=== PATIENT | female | born 1960 | race Caucasian/White ===

== ENCOUNTER → 2016-12-05 | Outpatient (CLI) | payer MEDICARE, MEDICAID ==
[2016-12-05 11:36] LABS: ABSOLUTE BASOPHILS # (AUTO) 0.1 10^3/uL (0.0-0.2); ABSOLUTE EOSINOPHILS # (AUTO) 0.2 10^3/uL (0.0-0.6); ABSOLUTE LYMPHOCYTES (AUTO) 3.4 10^3/uL (0.5-4.7); ABSOLUTE MONOCYTES (AUTO) 0.7 10^3/uL (0.1-1.4); ABSOLUTE NEUT (AUTO) 7.2 10^3/uL (1.7-8.2); BASOPHILS % (AUTO) 1.2 % (0-2); EOSINOPHILS % (AUTO) 1.4 % (0-6); HEMATOCRIT 42.3 % (36.0-47.0); HEMOGLOBIN 14.2 g/dL (12.0-15.5); HGB HCT DIFFERENCE 0.3; LYMPHOCYTES % (AUTO) 29.1 % (13-45); MEAN CORPUSCULAR HGB CONC 33.6 g/dL (32.0-36.0); MEAN CORPUSCULAR VOLUME 92 fl (80-97); MONOCYTES % (AUTO) 6.1 % (3-13); RED BLOOD COUNT 4.59 10^6/uL (3.72-5.28); RED CELL DISTRIBUTION WIDTH 12.8 % (11.5-14.0); SEGMENTED NEUTROPHILS % (AUTO) 62.2 % (42-78); WHITE BLOOD COUNT 11.6 10^3/uL (4.0-10.5)
[2016-12-05 11:42] LABS: APPEARANCE,URINE CLEAR; BILIRUBIN,URINE NEGATIVE (NEGATIVE); GLUCOSE, URINE NEGATIVE (NEGATIVE); KETONES,URINE NEGATIVE (NEGATIVE); LEUKOCYTE ESTERASE,URINE NEGATIVE (NEGATIVE); NITRITE,URINE NEGATIVE (NEGATIVE); PROTEIN,URINE NEGATIVE (NEGATIVE); URINE SPECIFIC GRAVITY 1.003; UROBILINOGEN,URINE NEGATIVE mg/dL (<2.0)
[2016-12-05 11:53] LABS: ANION GAP 12 (5-19); BLOOD UREA NITROGEN 10 mg/dL (7-20); CALCIUM 9.8 mg/dL (8.4-10.2); CARBON DIOXIDE 24 mmol/L (22-30); CHLORIDE 105 mmol/L (98-107); CREATININE RESULT 0.54 mg/dL (0.52-1.25); GLUCOSE 86 mg/dL (75-110); SODIUM 141.1 mmol/L (137-145)
--- NOTE | 2016-12-05 13:12 | EKG REPORT ---
SEVERITY:- NORMAL ECG - SINUS RHYTHM : Confirmed by: Darnell Torrez MD 05-Dec-2016 13:11:59
== END ==
LOC: OD 10:17
PROVIDERS: ATTEND Orthopaedic Surgery
DX: Z01.810 Encounter for preprocedural cardiovascular examination (principal); Z01.811 Encounter for preprocedural respiratory examination; Z01.812 Encounter for preprocedural laboratory examination; Z01.818 Encounter for other preprocedural examination
CPT/HCPCS: 36415; 71020; 80048; 81001; 85025; 93005; 93010

== ENCOUNTER 2016-12-25 06:46 | Inpatient (IN) | payer MEDICARE, MEDICAID ==
[~2016-12-25 06:46] MED LIST: BUPIVACAINE INJ/PF LIPOSOME/PF 266 MG/20 ML SDV IJ PRN; CLINDAMYCIN 600 MG/D5W RTU 600 MG/50 ML RTUPB IV PRN; IBUPROFEN 800 MG/NS 250 ML IV PRN; LACTATED RINGERS 1000 ML IV PRN; LANSOPRAZOLE 15 MG TAB.RAP.DR PO PRN; LIDOCAINE 0.5% INJ-PF (5 MG/ML) 50 ML SDV SUBCUT PRN; OXYCODONE HCL SR 10 MG TABLET PO PRN; SCOPOLAMINE HYDROBROMIDE 1.5 MG PATCH.TD72 TOP PRN; VANCOMYCIN HCL 1,000 MG in DEXTROSE 5%-WATER 250 ML IV PRN
[2016-12-25] MEDS ORDERED: MIDAZOLAM 2 MG/2 ML INJ ONE (06:57)
[2016-12-25] MEDS ORDERED: FENTANYL CITRATE INJ/PF 100 MCG/2 ML AMPUL ONE (06:57)
[2016-12-25] MEDS ORDERED: EPHEDRINE SULFATE INJ 50 MG/1 ML AMPULE ONE (06:57)
[2016-12-25] MEDS ORDERED: PROPOFOL INJ 200 MG/20 ML VIAL IV ONE (06:57)
[2016-12-25] MEDS ORDERED: DEXMEDETOMIDINE INJ 80 MCG/20 ML VIAL IV ONE (06:58)
[2016-12-25] MEDS ORDERED: TRANEXAMIC ACID INJ/PF 1,000 MG/10 ML SDV IV ONE ×2 (06:58→12:00)
[2016-12-25] MEDS ORDERED: THROMBIN (BOVINE) 5000 UNIT EPITAXIS KIT ONE (07:22)
[2016-12-25] MEDS ORDERED: BUPIVACAINE INJ/PF LIPOSOME/PF 266 MG/20 ML SDV ONE (07:22)
[2016-12-25] MEDS ORDERED: THROMBIN (BOVINE) TOPICAL 20000 UNIT VIAL ONE (07:25)
[2016-12-25] MEDS ORDERED: HYDROMORPHONE HCL INJ/PF 2 MG/ML AMPULE ONE (08:22)
[2016-12-25] MEDS ORDERED: MORPHINE SULFATE 10 MG/ML INJ ONE (08:22)
[2016-12-25] MEDS ORDERED: MEPERIDINE HCL/PF INJ 25 MG/1 ML DISP.SYRIN IV PRN (08:24)
[2016-12-25] MEDS ORDERED: PROMETHAZINE HCL INJ 25 MG/1 ML VIAL IV PRN ×2 (08:24)
[2016-12-25] MEDS ORDERED: DIPHENHYDRAMINE HCL 50 MG/ML VIAL IV PRN ×2 (08:24→09:51)
[2016-12-25] MEDS ORDERED: FENTANYL CITRATE INJ/PF 100 MCG/2 ML AMPUL IV PRN ×3 (08:24)
[2016-12-25] MEDS ORDERED: MORPHINE SULFATE 10 MG/ML INJ IV PRN ×3 (08:24→09:51)
--- NOTE | 2016-12-25 09:50 | Operative Report ---
Operative Report DATE OF SURGERY: 12/25/16 PREOPERATIVE DIAGNOSIS: Left knee arthritis OPERATION: Left knee arthroplasty SURGEON: KARLIE STANFORD ANESTHESIA: Spinal TISSUE REMOVED OR ALTERED: Bone to pathology ESTIMATED BLOOD LOSS: 100 PROCEDURE: Implants used: Femur: Striker triathlon #4 CR femur Tibia:, 3 tibia Tibial liner:, 9 mm CS insert Patella: 29 mm oval patella Procedure with the patient supine on the operating table the, left the limb is prepped and draped in a sterile fashion. The limb was elevated for exsanguination and the tourniquet inflated to 280 torr. A standard midline median parapatellar approach the knee is taken. Access is gained to the femoral canal through the intercondylar notch. Intramedullary alignment instrumentation used to resect 10 mm of distal femur in 5 of valgus. Sizing guide indicated a size. 4 femur. Appropriate cutting jig is then used to fashion anterior posterior and chamfer cuts. A trial reduction femurs performed and this is judged to be adequate. Attention was next turned to the tibia. Using an extra medullary alignment system 9 millimeters was resected off the lateral tibial plateau. This is sized to a size 3 tibia. A trial reduction was now performed with a. 4 femur and a 3 tibia using a 9 millimeters spacer. It is full extension and central patellofemoral tracking. The articular surface the patella was next resected using an oscillating saw. All trial implants were removed. Polymethylmethacrylate is mixed and used to cement the above implants in place. On adequate curing the cement excess cement was removed the tourniquet was deflated hemostasis obtained the wound is then closed in layers using interrupted Vicryl followed by brittaney. A sterile compressive dressing was applied and the patient returned to recovery room in satisfactory condition.
[2016-12-25] MEDS ORDERED: MORPHINE SULFATE 10 MG/ML INJ IM PRN (09:51)
[2016-12-25] MEDS ORDERED: RINGERS SOLUTION,LACTATED 1,000 ML IV PRN (09:51)
[2016-12-25] MEDS ORDERED: ONDANSETRON 4 MG TAB.RAPDIS PO PRN (09:51)
[2016-12-25] MEDS ORDERED: ACETAMINOPHEN 325 MG TABLET PO PRN (09:51)
[2016-12-25] MEDS ORDERED: MAG HYDROX/AL HYDROX/SIMETH SUSP 30 ML UDCUP PO PRN (09:51)
[2016-12-25] MEDS ORDERED: LIDOCAINE 15 GM TP SCH (10:00)
[2016-12-25] MEDS ORDERED: ONABOTULINUMTOXINA 200 UNIT IJ SCH (10:00)
[2016-12-25] MEDS ORDERED: LIDOCAINE 2% INJ-PF (20 MG/ML) 10 ML AMPUL ONE (12:43)
[2016-12-25] MEDS ORDERED: DEXAMETHASONE SOD PHOSPHATE INJ 4 MG/1 ML VIAL ONE (12:43)
[2016-12-25] MEDS ORDERED: METOCLOPRAMIDE HCL INJ/PF 10 MG/2 ML SDV ONE (12:43)
[2016-12-25] MEDS ORDERED: SUCCINYLCHOLINE CHLORIDE INJ 200 MG/10 ML VIAL ONE (12:43)
[2016-12-25] MEDS ORDERED: KETOROLAC TROMETHAMINE 60 MG/2 ML SDV ONE (12:43)
[2016-12-25] MEDS ORDERED: ONDANSETRON HCL INJ/PF 4 MG/2 ML SDV ONE (12:43)
[2016-12-25] MEDS: MORPHINE SULFATE 10 MG/ML INJ IV PRN (12:58)
[2016-12-25] MEDS: IBUPROFEN 800 MG in NORMAL SALINE 250 ML IV SCH (17:32)
[2016-12-25] MEDS: ONDANSETRON HCL INJ/PF 4 MG/2 ML SDV IV PRN (17:32)
[2016-12-25] MEDS: OXYCODONE HCL SR 10 MG TABLET PO SCH (17:33)
[2016-12-25] MEDS: SENNOSIDES/DOCUSATE 8.6-50 MG 1 EACH TABLET PO SCH (17:33)
[2016-12-25] MEDS: ZIPRASIDONE HCL 40 MG CAPSULE PO SCH (21:27)
[2016-12-25] MEDS: RIVAROXABAN 10 MG TABLET PO SCH (21:27)
[2016-12-25] MEDS ORDERED: ZOLPIDEM TARTRATE 5 MG TABLET PO PRN (22:00)
[2016-12-25] MEDS ORDERED: VANCOMYCIN HCL 1,000 MG in DEXTROSE 5%-WATER 250 ML IV ONE (22:00)
[2016-12-25] MEDS ORDERED: (PENDING PHARMACY ID) (Ziprasidone Hcl [Geodon] 80 MG) PO SCH (22:00)
[2016-12-25] MEDS ORDERED: CLOMIPRAMINE HCL PO SCH (22:00)
[2016-12-25] MEDS: OXYCODONE HCL IR 5 MG TABLET PO PRN (23:25)
[2016-12-26] MEDS: MORPHINE SULFATE 10 MG/ML INJ IV PRN (01:06)
[2016-12-26] MEDS: IBUPROFEN 800 MG in NORMAL SALINE 250 ML IV SCH ×3 (02:13→17:00)
[2016-12-26 04:55] LABS: HEMATOCRIT 28.3 % (36.0-47.0); HGB HCT DIFFERENCE 1.7; MEAN CORPUSCULAR HEMOGLOBIN 31.8 pg (27.0-33.4); MEAN CORPUSCULAR HGB CONC 35.5 g/dL (32.0-36.0); MEAN CORPUSCULAR VOLUME 89 fl (80-97); RED BLOOD COUNT 3.16 10^6/uL (3.72-5.28); RED CELL DISTRIBUTION WIDTH 12.4 % (11.5-14.0)
[2016-12-26 05:17] LABS: ANION GAP 10 (5-19); BLOOD UREA NITROGEN 7 mg/dL (7-20); CALCIUM 9.1 mg/dL (8.4-10.2); CARBON DIOXIDE 25 mmol/L (22-30); CHLORIDE 104 mmol/L (98-107); CREATININE RESULT 0.42 mg/dL (0.52-1.25); GLUCOSE 128 mg/dL (75-110); POTASSIUM 4.5 mmol/L (3.6-5.0); SODIUM 139.2 mmol/L (137-145)
[2016-12-26] MEDS: LEVOTHYROXINE SODIUM 0.1 MG TABLET PO SCH (06:04)
[2016-12-26] MEDS: LANSOPRAZOLE 30 MG TAB.RAP.DR PO SCH (06:04)
[2016-12-26] MEDS: OXYCODONE HCL SR 10 MG TABLET PO SCH ×2 (06:04→17:00)
--- NOTE | 2016-12-26 06:43 | PDOC PROGRESS REPORT ---
Subjective Progress Note for:: 12/26/16 Subjective:: Patient with significant pain last night but doing better this morning. She attributes this to the the ibuprofen Physical Exam Vital Signs: Temp Pulse Resp BP Pulse Ox 36.9 C 74 17 94/60 L 98 12/26/16 03:49 12/26/16 03:49 12/26/16 03:49 12/26/16 03:49 12/26/16 03:49 Intake & Output 12/24/16 12/25/16 12/26/16 06:59 06:59 06:59 Intake Total 0 4530 Output Total 4200 Balance 0 330 Weight 62.4 kg General appearance: PRESENT: no acute distress Head exam: PRESENT: normocephalic Eye exam: PRESENT: EOMI Respiratory exam: PRESENT: unlabored Cardiovascular exam: PRESENT: RRR Pulses: PRESENT: +1 pedal pulses bilateral Vascular exam: PRESENT: normal capillary refill GI/Abdominal exam: PRESENT: soft Rectal exam: PRESENT: deferred Extremities exam: PRESENT: other - Left lower extremity aime dressing is clean dry and intact. Distal neurovascular examinations intact. Neurological exam: PRESENT: alert, awake, oriented to person, oriented to place , oriented to time, oriented to situation, CN II-XII grossly intact. ABSENT: motor sensory deficit Psychiatric exam: PRESENT: anxious Skin exam: PRESENT: dry, intact, warm. ABSENT: cyanosis, rash Results Laboratory Results: 12/26/16 04:14 12/26/16 04:14 12/26/16 12/26/16 04:14 04:14 WBC 15.0 H RBC 3.16 L Hgb 10.0 L Hct 28.3 L MCV 89 MCH 31.8 MCHC 35.5 RDW 12.4 Plt Count 251 Sodium 139.2 Potassium 4.5 Chloride 104 Carbon Dioxide 25 Anion Gap 10 BUN 7 Creatinine 0.42 L Est GFR ( Amer) > 60 Est GFR (Non-Af Amer) > 60 Glucose 128 H Calcium 9.1 Impressions: Knee X-Ray 12/25/16 09:53 IMPRESSION: SATISFACTORY POSTOPERATIVE LEFT KNEE. Status: Imported from PACS Assessment & Plan - Diagnosis (1) Arthritis of left knee Is this a current diagnosis for this admission?: YesPlan: 56-year-old white female postop day 1 from left knee arthroplasty. There were significant pain issues that seem to be resolving. Patient ambulated 200 feet with physical therapy. Hematocrits greater than 28%. - Time Time Spent with patient: 15-24 minutes Anticipated discharge: Home with Homehealth Within: within 24 hours
[2016-12-26] MEDS ORDERED: ATOMOXETINE HCL 80 MG PO SCH (08:00)
[2016-12-26] MEDS ORDERED: LACTOBACILLUS COMBINATION NO 4 PO SCH (08:00)
[2016-12-26] MEDS ORDERED: (PENDING PHARMACY ID) (Vortioxetine Hydrobromide [Trintellix] 20 MG) PO SCH (08:00)
[2016-12-26] MEDS: SENNOSIDES/DOCUSATE 8.6-50 MG 1 EACH TABLET PO SCH ×2 (09:01→17:00)
[2016-12-26] MEDS: PRENATAL VITAMIN W-O CA NO5/FE FUMARATE/FA CAPSULE PO SCH (09:01)
[2016-12-26] MEDS: DIAZEPAM 5 MG TABLET PO SCH (09:01)
[2016-12-26] MEDS: LACTOBACILLUS ACIDOPHILUS 250 MG TAB PO SCH (09:02)
[2016-12-26] MEDS: FLUTICASONE NASAL SPRAY 50 MCG/SPRY 120 SPRAY/16 GM NASL SCH (09:04)
[2016-12-26] MEDS: OXYCODONE HCL IR 5 MG TABLET PO PRN ×2 (13:13→22:32)
[2016-12-26] MEDS: ZIPRASIDONE HCL 40 MG CAPSULE PO SCH (21:14)
[2016-12-26] MEDS: RIVAROXABAN 10 MG TABLET PO SCH (21:14)
[2016-12-27] MEDS: ONDANSETRON HCL INJ/PF 4 MG/2 ML SDV IV PRN (00:26)
[2016-12-27] MEDS: IBUPROFEN 800 MG in NORMAL SALINE 250 ML IV SCH ×2 (00:57→09:52)
[2016-12-27 05:08] LABS: HEMATOCRIT 26.9 % (36.0-47.0); HEMOGLOBIN 9.5 g/dL (12.0-15.5); HGB HCT DIFFERENCE 1.6; MEAN CORPUSCULAR HEMOGLOBIN 31.5 pg (27.0-33.4); MEAN CORPUSCULAR HGB CONC 35.1 g/dL (32.0-36.0); MEAN CORPUSCULAR VOLUME 90 fl (80-97); RED CELL DISTRIBUTION WIDTH 12.7 % (11.5-14.0); WHITE BLOOD COUNT 13.5 10^3/uL (4.0-10.5)
[2016-12-27] MEDS: LEVOTHYROXINE SODIUM 0.1 MG TABLET PO SCH (05:19)
[2016-12-27] MEDS: LANSOPRAZOLE 30 MG TAB.RAP.DR PO SCH (05:19)
[2016-12-27] MEDS: OXYCODONE HCL SR 10 MG TABLET PO SCH (05:19)
--- NOTE | 2016-12-27 07:25 | PDOC DISCHARGE SUMMARY ---
General - Admit/Disc Date/PCP Admission Date/Primary Care Provider: 12/25/16 06:46 SARBJIT ACEVEDO MD Discharge Date: 12/27/16 - Discharge Diagnosis (1) Arthritis of left knee Is this a current diagnosis for this admission?: YesSummary: Patient's a 56-year-old white female who presents with bilateral knee osteoarthritis and associated pain and functional disability. - Additional Information Resuscitation Status: Full Code Discharge Diet: As Tolerated, Regular Discharge Activity: Activity As Tolerated, Balance Activity w/Rest, No Driving Home Medications: Atomoxetine HCl [Strattera] 80 mg PO BID 12/25/16 Clomipramine HCl [Anafranil 25 mg Capsule] 100 mg PO QHS 12/25/16 Levothyroxine Sodium [Synthroid] 100 mcg PO QAM 12/25/16 Trazodone HCl [Desyrel] 200 mg PO QHS 12/25/16 Vortioxetine Hydrobromide [Trintellix] 20 mg PO QAM 12/25/16 Ziprasidone HCl [Geodon] 80 mg PO BID 12/25/16 Atomoxetine HCl [Strattera] 80 mg PO QAM 12/27/16 Clomipramine HCl [Clomipramine HCl] 100 mg PO QHS 12/27/16 Diazepam [Valium 5 mg Tablet] 5 mg PO DAILY #0 tablet 12/27/16 Levothyroxine Sodium [Synthroid 0.1 mg Tablet] 0.1 mg PO Q6AM #0 tablet Lidocaine [Lidocaine] 15 gm TP TID 12/27/16 Oxycodone HCl [Oxy-Ir 5 mg Tablet] 5 mg PO Q6HP PRN #0 tablet 12/27/16 Rivaroxaban [Xarelto 10 mg Tablet] 10 mg PO QHS #0 tablet 12/27/16 Vortioxetine Hydrobromide [Trintellix] 20 mg PO QAM 12/27/16 Ziprasidone HCl [Geodon 40 mg Capsule] 80 mg PO QHS #0 capsule 12/27/16 History of Present Illness History of Present Illness: LOREE JAQUEZ is a 56 year old female Hospital Course Hospital Course: Patient is admitted through the operating room for elective left knee arthroplasty. Her sutures uncomplicated. She was returned to floor in satisfactory condition. She's seen by physical therapy for weightbearing as tolerated ambulation and range of motion. She makes excellent progress in this regard. Pain control is mildly problematic. She makes sufficient progress that she substrate for discharge with home health intermediate health physical therapy we will walker and bedside commode. Physical Exam Vital Signs: Temp Pulse Resp BP Pulse Ox 36.9 C 92 20 119/46 L 97 12/26/16 19:56 12/26/16 23:12 12/26/16 23:12 12/26/16 23:12 12/26/16 23:12 Intake & Output 12/26/16 12/27/16 12/28/16 06:59 06:59 06:59 Intake Total 4530 2230 Output Total 4200 2850 Balance 330 -620 Weight 62.4 kg 59.1 kg General appearance: PRESENT: no acute distress Head exam: PRESENT: normocephalic Eye exam: PRESENT: EOMI Respiratory exam: PRESENT: unlabored Cardiovascular exam: PRESENT: RRR Pulses: PRESENT: +1 pedal pulses bilateral Vascular exam: PRESENT: normal capillary refill GI/Abdominal exam: PRESENT: soft Rectal exam: PRESENT: deferred Extremities exam: PRESENT: other - Left knee aime dressing clean dry and intact. There is minimal pedal edema. Brisk capillary refill. Distal neurovascular examinations intact. Neurological exam: PRESENT: alert, awake, oriented to person, oriented to place , oriented to time, oriented to situation. ABSENT: motor sensory deficit Psychiatric exam: PRESENT: appropriate affect, normal mood. ABSENT: homicidal ideation, suicidal ideation Skin exam: PRESENT: dry, intact, warm. ABSENT: cyanosis, rash Results Laboratory Results: 12/27/16 04:06 12/26/16 04:14 12/27/16 04:06 WBC 13.5 H RBC 3.00 L Hgb 9.5 L Hct 26.9 L MCV 90 MCH 31.5 MCHC 35.1 RDW 12.7 Plt Count 244 Impressions: Knee X-Ray 12/25/16 09:53 IMPRESSION: SATISFACTORY POSTOPERATIVE LEFT KNEE. Status: Imported from PACS Plan Discharge Plan: Patient to be discharged home with home health nursing, home health physical therapy, we'll Walker, bedside commode. Visiting nurse service to change the aime dressing on postop day #7. Patient will follow up with Dr. Kate in the [facility] for surgery in 2 weeks for staple removal.
[2016-12-27] MEDS: OXYCODONE HCL IR 5 MG TABLET PO PRN (09:51)
[2016-12-27] MEDS: SENNOSIDES/DOCUSATE 8.6-50 MG 1 EACH TABLET PO SCH (09:52)
[2016-12-27] MEDS: LACTOBACILLUS ACIDOPHILUS 250 MG TAB PO SCH (09:52)
[2016-12-27] MEDS: DIAZEPAM 5 MG TABLET PO SCH (09:52)
[2016-12-27] MEDS: PRENATAL VITAMIN W-O CA NO5/FE FUMARATE/FA CAPSULE PO SCH (09:52)
[2016-12-27] MEDS: FLUTICASONE NASAL SPRAY 50 MCG/SPRY 120 SPRAY/16 GM NASL SCH (09:53)
[2016-12-27 13:43] VITALS: BP 110/74
== END 2016-12-27 14:45 | disposition home health service (06) | DRG 470 ==
LOC: INOR 06:46 → 4S 12:08
PROVIDERS: ADMIT Orthopaedic Surgery; ATTEND Orthopaedic Surgery
PROC: 0SRD0J9 Replacement of Left Knee Joint with Synthetic Substitute, Cemented, Open Approach (ICD-10-PCS; principal; 2016-12-25 08:45)
DX: M17.12 Unilateral primary osteoarthritis, left knee (principal); M19.90 Unspecified osteoarthritis, unspecified site; J45.909 Unspecified asthma, uncomplicated; K21.9 Gastro-esophageal reflux disease without esophagitis; K44.9 Diaphragmatic hernia without obstruction or gangrene; F41.8 Other specified anxiety disorders; E89.0 Postprocedural hypothyroidism
CPT/HCPCS: 01402; 36415; 80048; 85027; 88305; 88311; 94799; C9290; G8978-GP; G8979-GP; G8987-GO; G8988-GO; J0330; J1100; J1170; J1741; J1885; J2250; J2270; J2405; J2704; J2765; J3010; J3370; J3490; J7050; J7060

== ENCOUNTER 2016-12-30 13:31 | Emergency (ER) | payer MEDICARE, MEDICAID ==
[2016-12-30 13:48] VITALS: BP 105/68
--- NOTE | 2016-12-30 14:06 | ER Document Report ---
ED Medical Screen (RME) - General Chief Complaint: Urinary Problem Stated Complaint: PAIN WITH URINATION Notes: Patient is having painful urination with burning, especially as she finishes urinating for the past few days. Has not had any fever or flank pain. Patient had a left total knee replacement Sunday, and she did have a Gaming catheter in during the procedure. PMH: On Xarelto. Hypothyroid. Bipolar disorder and anxiety. OCD. TRAVEL OUTSIDE OF THE [place] IN LAST 30 DAYS: No - Related Data Allergies/Adverse Reactions: amoxicillin [From Augmentin] Allergy (Verified 12/12/16 10:39) Facial swelling clavulanic acid [From Augmentin] Allergy (Verified 12/12/16 10:39) Facial swelling paliperidone [From Invega] Allergy (Verified 12/12/16 10:27) Anaphylaxis risperidone [From Risperdal] Allergy (Verified 12/12/16 10:27) Anaphylaxis Past Medical History - Past Medical History Cardiac Medical History: Denies: Hx Atrial Fibrillation, Hx Congestive Heart Failure, Hx Coronary Artery Disease, Hx Heart Attack, Hx Hypercholesterolemia, Hx Hypertension, Hx Peripheral Vascular Disease, Hx Pulmonary Embolism, Hx Heart Murmur Pulmonary Medical History: Reports: Hx Asthma, Hx Bronchitis, Hx Pneumonia Denies: Hx COPD, Hx Respiratory Failure, Hx Sleep Apnea, Hx Tuberculosis Neurological Medical History: Reports: Hx Migraine. Denies: Hx Cerebrovascular Accident, Hx Seizures Endocrine Medical History: Reports: Hx Hyperthyroidism, Hx Hypothyroidism - Thyroidectomy, takes Synthroid. Denies: Hx Graves' Disease Renal/ Medical History: Reports: Hx Ovarian Cysts - left. Denies: Hx Peritoneal Dialysis, Hx Pelvic Inflammatory Disease Malignancy Medical History: Reports: Hx Breast Cancer, Hx Cervical Cancer. Denies: Hx Lung Cancer, Hx Ovarian Cancer GI Medical History: Reports: Hx Gastroesophageal Reflux Disease, Hx Hiatal Hernia, Hx Ulcer. Denies: Hx Crohn's Disease, Hx Irritable Bowel, Hx Liver Failure Musculoskeltal Medical History: Reports Hx Arthritis, Denies Hx Fibromyalgia, Denies Hx Multiple Sclerosis, Denies Hx Muscular Dystrophy Psychiatric Medical History: Reports: Hx Bipolar Disorder, Hx Depression Denies: Hx Dementia, Hx Post Traumatic Stress Disorder, Hx Schizophrenia Traumatic Medical History: Denies: Hx Fractures Past Surgical History: Reports: Hx Breast Surgery, Hx Gynecologic Surgery - 1 ovary out, Hx Hysterectomy, Hx Mastectomy - bilateral, Hx Orthopedic Surgery - ortoscopic left knee, Hx Tonsillectomy. Denies: Hx Appendectomy, Hx Bowel Surgery, Hx Section, Hx Cholecystectomy, Hx Colostomy, Hx Coronary Artery Bypass Graft, Hx Gastric Bypass Surgery, Hx Herniorrhaphy, Hx Pacemaker, Hx Tubal Ligation - Immunizations Immunizations up to date: Yes Hx Diphtheria, Pertussis, Tetanus Vaccination: No Physical Exam - Vital signs Vitals: Temp Pulse Resp BP Pulse Ox 98.2 F 103 H 16 105/68 98 12/30/16 13:45 12/30/16 13:45 12/30/16 13:45 12/30/16 13:45 12/30/16 13:45 Course - Vital Signs Vital signs: Temp Pulse Resp BP Pulse Ox 98.2 F 103 H 16 105/68 98 12/30/16 13:45 12/30/16 13:45 12/30/16 13:45 12/30/16 13:45 12/30/16 13:45
[2016-12-30 14:53] LABS: APPEARANCE,URINE CLOUDY; BILIRUBIN,URINE NEGATIVE (NEGATIVE); GLUCOSE, URINE NEGATIVE (NEGATIVE); KETONES,URINE TRACE mg/dL (NEGATIVE); LEUKOCYTE ESTERASE,URINE LARGE (NEGATIVE); NITRITE,URINE NEGATIVE (NEGATIVE); PROTEIN,URINE 100 mg/dL (NEGATIVE); URINE SPECIFIC GRAVITY 1.023
[2016-12-30] MEDS ORDERED: PHENAZOPYRIDINE HCL 100 MG TABLET PO ONE (15:00)
[2016-12-30] MEDS ORDERED: ONDANSETRON 4 MG TAB.RAPDIS PO ONE (15:00)
--- NOTE | 2016-12-30 15:02 | ER Document Report ---
HPI - HPI Patient complains to provider of: urinary tract infection Onset: Other - Several days Onset/Duration: Worse Quality of pain: Burning Pain Level: 3 Context: 56-year-old female that had a left total knee replacement I's Dr. Kate on Sunday is complaining of dysuria frequency and urgency for several days the pain started today especially at the end of urination. No abdominal pain, flank pain, nausea, or vomiting. NO fever or chills. Associated Symptoms: None Exacerbated by: Other - Urination Relieved by: Denies Similar symptoms previously: No Recently seen / treated by doctor: No - ROS ROS below otherwise negative: Yes Systems Reviewed and Negative: Yes All other systems reviewed and negative - REPRODUCTIVE Reproductive: DENIES: : - DERM Skin Color: Normal Past Medical History - General Information source: Patient - Social History Smoking Status: Never Smoker Frequency of alcohol use: None Drug Abuse: None Lives with: Family Family History: Reviewed & Not Pertinent Pulmonary Medical History: Reports: Hx Asthma, Hx Bronchitis, Hx Pneumonia Neurological Medical History: Reports: Hx Migraine Endocrine Medical History: Reports: Hx Hyperthyroidism, Hx Hypothyroidism - Thyroidectomy, takes Synthroid Renal/ Medical History: Reports: Hx Ovarian Cysts - left Malignancy Medical History: Reports: Hx Breast Cancer, Hx Cervical Cancer GI Medical History: Reports: Hx Gastroesophageal Reflux Disease, Hx Hiatal Hernia, Hx Ulcer Musculoskeltal Medical History: Reports Hx Arthritis Psychiatric Medical History: Reports: Hx Bipolar Disorder, Hx Depression Past Surgical History: Reports: Hx Breast Surgery, Hx Gynecologic Surgery - 1 ovary out, Hx Hysterectomy, Hx Mastectomy - bilateral, Hx Orthopedic Surgery - ortoscopic left knee, Hx Tonsillectomy - Immunizations Immunizations up to date: Yes Hx Diphtheria, Pertussis, Tetanus Vaccination: No Hx Pneumococcal Vaccination: 06/17/17 Vertical Provider Document - CONSTITUTIONAL Agree With Documented VS: Yes Exam Limitations: No Limitations - INFECTION CONTROL TRAVEL OUTSIDE OF THE [place] IN LAST 30 DAYS: No - HEENT HEENT: Normocephalic - NECK Neck: Supple - RESPIRATORY Respiratory: Breath Sounds Normal, No Respiratory Distress O2 Sat by Pulse Oximetry: 98 - CARDIOVASCULAR Cardiovascular: Regular Rate, Regular Rhythm - GI/ABDOMEN Gastrointestinal: Abdomen Soft, Abdomen Non-Tender, No Organomegaly - BACK Back: Normal Inspection. negative: CVA Tenderness-Right, CVA Tenderness-Left - MUSCULOSKELETAL/EXTREMETIES Musculoskeletal/Extremeties: HARSHIL DEE NEURO Level of Consciousness: Awake, Alert, Appropriate - DERM Integumentary: Warm, Dry, No Rash Course - Vital Signs Vital signs: Temp Pulse Resp BP Pulse Ox 98.2 F 103 H 16 105/68 98 12/30/16 13:45 12/30/16 13:45 12/30/16 13:45 12/30/16 13:45 12/30/16 13:45 - Laboratory Laboratory results interpreted by me: 12/30/16 14:05 Urine Protein 100 H Urine Ketones TRACE H Urine Blood LARGE H Urine Urobilinogen 2.0 H Ur Leukocyte Esterase LARGE H Discharge - Discharge Clinical Impression: Catheter-associated urinary tract infection Qualifiers: Indwelling urinary catheter type: indwelling urethral catheter Encounter type: initial encounter Qualified Code(s): T83.511A - Infection and inflammatory reaction due to indwelling urethral catheter, initial encounter Condition: Good Disposition: HOME, SELF-CARE Instructions: Cephalexin ([facility]), Urinary Tract Infection ([facility]), Urinary Anesthetic Agent ([facility]), Rocephin ([facility]) Additional Instructions: urine culture is pending drink plenty of water daily to er if you get fever, vomiting, worsening pain Please complete the patient satisfaction survey if you get one, and return it.. If you do not receive a survey, then you can go to the [facility] website, [email or web address] and place your comments about your very good care. Thank you very much. It was a pleasure being your medical provider today. Prescriptions: Cephalexin Monohydrate [Keflex 500 mg Capsule] 500 mg PO QID #28 capsule Phenazopyridine HCl [Pyridium 100 Mg Tablet] 100 mg PO TIDP PRN #10 tablet PRN Reason: Referrals: SARBJIT ACEVEDO MD [Primary Care Provider] - Follow up as needed
[2016-12-30] MEDS ORDERED: CEFTRIAXONE INJ 1000 MG VIAL IM ONE (15:06)
== END 2016-12-30 15:35 | disposition home or self-care (01) ==
LOC: ER 13:31
DX: T83.511A Infection and inflammatory reaction due to indwelling urethral catheter, initial encounter (principal); N39.0 Urinary tract infection, site not specified; R30.0 Dysuria; R35.0 Frequency of micturition; R39.15 Urgency of urination
CPT/HCPCS: 99283; 96372; 87086; 87088; 81001; 87186; A9270 ×2; J0696; J3490; S0119

== ENCOUNTER → 2018-02-13 | Outpatient (CLI) | payer MEDICARE, MEDICAID ==
--- NOTE | 2018-02-13 11:00 | RADIOLOGY REPORT (SQ) ---
EXAM DESCRIPTION: U/S ABDOMEN COMPLETE W/O DOP COMPLETED DATE/TIME: 02/13/2018 9:35 am REASON FOR STUDY: EPIGASTRIC PAIN (R10.13) R10.13 EPIGASTRIC PAIN COMPARISON: None. TECHNIQUE: Dynamic and static grayscale images acquired of the abdomen and recorded on PACS. Additio nal selected color Doppler and spectral images recorded. LIMITATIONS: None. FINDINGS: PANCREAS: No masses. Visualized pancreatic duct normal caliber. LIVER: No masses. Echotexture normal. LIVER VASCULATURE: Normal directional flow of the main portal vein and hepatic veins. GALLBLADDER: No stones. Normal wall thickness. No pericholecystic fluid. ULTRASOUND-DETECTED ESPINOSA'S SIGN: Negative. INTRAHEPATIC DUCTS AND COMMON DUCT: CBD and intrahepatic ducts normal caliber. No filling defects. INFERIOR VENA CAVA: Normal flow. AORTA: No aneurysm. RIGHT KIDNEY: Normal size. Normal echogenicity. No solid or suspicious masses. No hydronephros is. No calcifications. LEFT KIDNEY: Normal size. Normal echogenicity. No solid or suspicious masses. No hydronephrosi s. No calcifications. SPLEEN: Normal size. No solid masses. PERITONEAL AND PLEURAL SPACES: No ascites or effusions. OTHER: No other significant finding. IMPRESSION: NORMAL ABDOMINAL ULTRASOUND. TECHNICAL DOCUMENTATION: JOB ID: [id number] [employer]- All Rights Reserved Reading location - IP/workstation name: [email or web address]
== END ==
LOC: RAD 08:34
PROVIDERS: ATTEND Family Medicine
DX: R10.13 Epigastric pain (principal)
CPT/HCPCS: 76700

== ENCOUNTER 2018-03-01 08:34 | Day surgery (SDC) | payer MEDICARE, MEDICAID ==
[2018-02-27 12:02] LABS: HEMOGLOBIN 15.2 g/dL (12.0-15.5); MEAN CORPUSCULAR HEMOGLOBIN 31.3 pg (27.0-33.4); MEAN CORPUSCULAR HGB CONC 34.6 g/dL (32.0-36.0); MEAN CORPUSCULAR VOLUME 91 fl (80-97); PLATELET COUNT 392 10^3/uL (150-450); RED BLOOD COUNT 4.85 10^6/uL (3.72-5.28); RED CELL DISTRIBUTION WIDTH 12.7 % (11.5-14.0)
--- NOTE | 2018-02-27 13:26 | EKG REPORT ---
SEVERITY:- NORMAL ECG - SINUS RHYTHM : Confirmed by: Darnell Torrez MD 27-Feb-2018 13:26:03
[~2018-03-01 08:34] MED LIST changes: -BUPIVACAINE INJ/PF LIPOSOME/PF 266 MG/20 ML SDV IJ PRN; -CLINDAMYCIN 600 MG/D5W RTU 600 MG/50 ML RTUPB IV PRN; -IBUPROFEN 800 MG/NS 250 ML IV PRN; -LANSOPRAZOLE 15 MG TAB.RAP.DR PO PRN; -OXYCODONE HCL SR 10 MG TABLET PO PRN; -SCOPOLAMINE HYDROBROMIDE 1.5 MG PATCH.TD72 TOP PRN; -VANCOMYCIN HCL 1,000 MG in DEXTROSE 5%-WATER 250 ML IV PRN
[2018-03-01] MEDS ORDERED: FAMOTIDINE INJ/PF 20 MG/2 ML SDV IV ONE (09:06)
[2018-03-01] MEDS ORDERED: ALBUTEROL SULFATE 0.083% NEB 2.5 MG/3 ML AMPUL NEB ONE (09:30)
[2018-03-01] MEDS ORDERED: MIDAZOLAM 2 MG/2 ML INJ ONE ×2 (09:55→10:21)
[2018-03-01] MEDS ORDERED: PROPOFOL INJ 200 MG/20 ML VIAL IV ONE (10:21)
[2018-03-01] MEDS ORDERED: ONDANSETRON HCL INJ/PF 4 MG/2 ML SDV IV PRN (10:32)
[2018-03-01] MEDS ORDERED: FENTANYL CITRATE INJ/PF 100 MCG/2 ML AMPUL IV PRN ×3 (10:32)
[2018-03-01] MEDS ORDERED: MEPERIDINE HCL/PF INJ 25 MG/1 ML DISP.SYRIN IV PRN (10:32)
[2018-03-01] MEDS ORDERED: DIPHENHYDRAMINE HCL 50 MG/ML VIAL IV PRN (10:32)
--- NOTE | 2018-03-01 12:32 | Operative Report ---
Operative Report DATE OF SURGERY: 03/01/18 Operative Report: The risks, benefits and alternatives of the procedure including risks of bleeding, perforation requiring surgery are explained to the patient in detail and informed consent was obtained. Patient is brought back to the operating room and placed in the left, lateral decubital position. Timeout was called. Propofol medication is administered. A rectal examination is done which did not reveal any masses, tears or fissures. An Olympus videoscope was inserted in the patient's rectum. The scope was then carefully advanced all the way to the cecum. The cecum was identified by the usual anatomical landmarks including the ileocecal valve as well as the appendiceal office. Photodocumentation is obtained. The scope was then sequentially pulled back via the various segments of the colon including the ascending colon, hepatic flexure, transverse colon, splenic flexure, descending colon and finally into the rectosigmoid portions of the colon. Retroflexion maneuvers performed. The risks benefits and alternatives of the procedure explained to the patient in detail and informed consent is obtained.A GIF Olympus video scope was inserted into the patient's mouth and hypopharynx, the esophagus is identified intubated and insufflated ,the scope was then advanced through the esophagus stomach and duodenum, retroflexion maneuver is done ,the esophagus stomach and first and second portions of the duodenum examined PREOPERATIVE DIAGNOSIS: Gastroesophageal reflux disease, dyspepsia. Colorectal cancer screening POSTOPERATIVE DIAGNOSIS: Gastritis status post biopsy rule out Helicobacter pylori. Random biopsies right side of the colon rule out lymphocytic, microscopic, collagenous colitis. Internal hemorrhoids OPERATION: Colonoscopy with biopsy. EGD with biopsy SURGEON: JOYCELYN LANTIGUA ANESTHESIA: LMAC TISSUE REMOVED OR ALTERED: As noted above. COMPLICATIONS: None. ESTIMATED BLOOD LOSS: None. INTRAOPERATIVE FINDINGS: As noted above. PROCEDURE: Patient tolerated procedure well. No immediate postprocedure comp occasions are noted. Patient discharged in good condition. Discharge date 03/01/2018. Discharge diet: Regular. Discharge activity: Regular. 2-3 week follow-up to discuss findings. Patient is instructed to call the office or proceed to the emergency room should there be any further problems or questions. We will wait on the pathology. If biopsies are negative patient can go for 10 year surveillance colonoscopy.
[2018-03-01 12:44] VITALS: BP 104/62
== END 2018-03-01 12:35 | disposition home or self-care (01) ==
LOC: OROUT 08:34
PROVIDERS: ATTEND Internal Medicine Gastroenterology
DX: Z12.11 Encounter for screening for malignant neoplasm of colon (principal); K52.9 Noninfective gastroenteritis and colitis, unspecified; K64.8 Other hemorrhoids; Z86.010 Personal history of colon polyps; K29.50 Unspecified chronic gastritis without bleeding; K21.9 Gastro-esophageal reflux disease without esophagitis; E89.0 Postprocedural hypothyroidism; K44.9 Diaphragmatic hernia without obstruction or gangrene; F17.210 Nicotine dependence, cigarettes, uncomplicated; J45.909 Unspecified asthma, uncomplicated; M19.90 Unspecified osteoarthritis, unspecified site; Z79.51 Long term (current) use of inhaled steroids
CPT/HCPCS: 43239; 45380; 93005; 36415; 85027; 93010; 94640; J2250; J2704; S0028; A9270; 813

== ENCOUNTER → 2018-04-25 | Outpatient (CLI) | payer MEDICARE, MEDICAID ==
--- NOTE | 2018-04-25 14:35 | RADIOLOGY REPORT (SQ) ---
EXAM DESCRIPTION: NM HIDA SCAN WITH CCK COMPLETED DATE/TIME: 04/25/2018 10:41 am REASON FOR STUDY: RUQ PAIN R10.11 RIGHT UPPER QUADRANT PAIN COMPARISON: Abdominal ultrasound 02/13/2018, 04/01/2013 RADIONUCLIDE AND DOSE: DOSAGE RADIONUCLIDE: 5.4 millicuries Tc99m Mebrofenin. DOSAGE CCK: 1 mcg micrograms. DOSAGE MORPHINE: Not required. The route of agent administration: Intravenous TECHNIQUE: Serial imaging right upper quadrant up to 60 minutes following injection of radionuclide. CCK injected after gallbladder visualized. LIMITATIONS: None. FINDINGS: LIVER: Normal liver uptake which clears by 60 minutes. INTRAHEPATIC BILE DUCTS: Normal visualization. COMMON BILE DUCT: Normal visualization. GALLBLADDER: Normal visualization. Calculated ejection fraction of 24%. Normal range is greater th an 35%. PHYSICAL RESPONSE: Patients presenting complaint was reproduced. OTHER: No other significant finding. IMPRESSION: No scintigraphic evidence of cystic duct or common duct obstruction. IV CCK reproduced the patient's symptoms. Depressed gallbladder ejection fraction of 24%. TECHNICAL DOCUMENTATION: JOB ID: [id number] [employer]- All Rights Reserved Reading location - IP/workstation name: [email or web address]
== END ==
LOC: RAD 07:57
PROVIDERS: ATTEND Internal Medicine Gastroenterology
DX: R10.11 Right upper quadrant pain (principal)
CPT/HCPCS: 78227; J2805; A9537; Q9969

== ENCOUNTER 2018-05-02 21:08 | Observation (INO) | payer MEDICARE, MEDICAID ==
[2018-05-02] MEDS ORDERED: KETOROLAC TROMETHAMINE INJ/PF 30 MG/1 ML SDV IV ONE (22:20)
[2018-05-02] MEDS ORDERED: ONDANSETRON HCL INJ/PF 4 MG/2 ML SDV IV ONE (22:21)
--- NOTE | 2018-05-02 22:43 | ER Document Report ---
ED General - General Chief Complaint: Abdominal Pain Stated Complaint: ABDOMINAL PAIN Time Seen by Provider: 05/02/18 22:19 Notes: Patient is a 58-year-old female who presents with 24 hours of continuous right upper quadrant abdominal pain. Patient describes it as a severe, cramping, twisting pain to the upper abdomen. Nothing improves or worsens this pain which she notes has been progressively worsening since onset at 4 AM this morning. She states that she has been dealing with intermittent pain of this type since the end of February. She had a HIDA scan done by her GI doctor last week which did show abnormal ejection fraction of the gallbladder. She has not yet been able to follow-up with her doctor regarding this issue. She notes associated nausea and vomiting today. She has not had fever or constitutional symptoms. She denies ever having her pain lasts for this duration in the past stating it usually lasts several hours after eating. TRAVEL OUTSIDE OF THE [place] IN LAST 30 DAYS: No - Related Data Allergies/Adverse Reactions: amoxicillin [From Augmentin] Allergy (Verified 12/12/16 10:39) Facial swelling clavulanic acid [From Augmentin] Allergy (Verified 12/12/16 10:39) Facial swelling hydroxyzine Allergy (Verified 02/26/18 10:58) CHANGES IN BALANCE, BLURRY VISION paliperidone [From Invega] Allergy (Verified 12/12/16 10:27) Anaphylaxis risperidone [From Risperdal] Allergy (Verified 12/12/16 10:27) Anaphylaxis Past Medical History - General Information source: Patient - Social History Smoking Status: Never Smoker Frequency of alcohol use: None Drug Abuse: None Lives with: Family Family History: Reviewed & Not Pertinent - Past Medical History Cardiac Medical History: Denies: Hx Atrial Fibrillation, Hx Congestive Heart Failure, Hx Coronary Artery Disease, Hx Heart Attack, Hx Hypercholesterolemia, Hx Hypertension, Hx Peripheral Vascular Disease, Hx Pulmonary Embolism, Hx Heart Murmur Pulmonary Medical History: Reports: Hx Asthma - ???, Hx Bronchitis, Hx Pneumonia Denies: Hx COPD, Hx Respiratory Failure, Hx Sleep Apnea, Hx Tuberculosis Neurological Medical History: Reports: Hx Migraine. Denies: Hx Cerebrovascular Accident, Hx Seizures Endocrine Medical History: Reports: Hx Hyperthyroidism, Hx Hypothyroidism - Thyroidectomy, takes Synthroid. Denies: Hx Graves' Disease Renal/ Medical History: Reports: Hx Ovarian Cysts - left. Denies: Hx Peritoneal Dialysis, Hx Pelvic Inflammatory Disease Malignancy Medical History: Reports: Hx Breast Cancer, Hx Cervical Cancer. Denies: Hx Lung Cancer, Hx Ovarian Cancer GI Medical History: Reports: Hx Gastroesophageal Reflux Disease, Hx Hiatal Hernia, Hx Ulcer. Denies: Hx Crohn's Disease, Hx Irritable Bowel, Hx Liver Failure, Hx Pancreatitis Musculoskeletal Medical History: Reports Hx Arthritis, Denies Hx Fibromyalgia, Denies Hx Multiple Sclerosis, Denies Hx Muscular Dystrophy Psychiatric Medical History: Reports: Hx Bipolar Disorder, Hx Depression Denies: Hx Dementia, Hx Post Traumatic Stress Disorder, Hx Schizophrenia Traumatic Medical History: Denies: Hx Fractures Past Surgical History: Reports: Hx Breast Surgery, Hx Gynecologic Surgery - 1 ovary out, Hx Hysterectomy, Hx Mastectomy - bilateral, Hx Orthopedic Surgery - ortoscopic left knee, Hx Tonsillectomy. Denies: Hx Appendectomy, Hx Bowel Surgery, Hx Section, Hx Cholecystectomy, Hx Colostomy, Hx Coronary Artery Bypass Graft, Hx Gastric Bypass Surgery, Hx Herniorrhaphy, Hx Pacemaker, Hx Tubal Ligation - Immunizations Immunizations up to date: Yes Hx Diphtheria, Pertussis, Tetanus Vaccination: Yes - 2011 Hx Pneumococcal Vaccination: 06/17/17 Review of Systems - Review of Systems Notes: Constitutional: Negative for fever. HENT: Negative for sore throat. Eyes: Negative for visual changes. Cardiovascular: Negative for chest pain. Respiratory: Negative for shortness of breath. Gastrointestinal: Positive for abdominal pain and vomiting Genitourinary: Negative for dysuria. Musculoskeletal: Negative for back pain. Skin: Negative for rash. Neurological: Negative for headaches, weakness or numbness. 10 point ROS negative except as marked above and in HPI. Physical Exam - Vital signs Vitals: Temp Pulse Resp BP Pulse Ox 98.0 F 108 H 18 124/47 L 97 05/02/18 21:13 05/02/18 21:13 05/02/18 21:13 05/02/18 21:13 05/02/18 21:13 Interpretation: Tachycardic Notes: PHYSICAL EXAMINATION: GENERAL: Appears to be uncomfortable, in pain but no acute distress HEAD: Atraumatic, normocephalic. EYES: Pupils equal round and reactive to light, extraocular movements intact, sclera anicteric, conjunctiva are normal. ENT: nares patent, oropharynx clear without exudates. Moderately dry mucous membranes. NECK: Normal range of motion, supple without lymphadenopathy LUNGS: Breath sounds clear to auscultation bilaterally and equal. No wheezes rales or rhonchi. HEART: Regular tachycardia without murmurs ABDOMEN: Soft, focal right upper quadrant tenderness without rebound or guarding but no other localized areas of tenderness, normoactive bowel sounds. No guarding, no rebound. No masses appreciated. EXTREMITIES: Normal range of motion, no pitting or edema. No cyanosis. NEUROLOGICAL: No focal neurological deficits. Moves all extremities spontaneously and on command. PSYCH: Moderately anxious SKIN: Warm, Dry, normal turgor, no rashes or lesions noted. Course - Re-evaluation Re-evalutation: 05/02/18 22:42 Patient presents with right upper quadrant abdominal pain that has been continuous for the past 24 hours. She had a HIDA scan on the eighth of this month which showed an abnormal ejection fraction from her gallbladder and has been having recurrent symptoms for the past 2 months. However she states that for the past 24 hours these pains have now become consistent and are unremitting. She has been having nausea and vomiting is unable to tolerate oral intake at home. Concern for acute cholecystitis. Will proceed with labs, right upper quadrant ultrasound, pain control, IV fluids and reassess. 05/03/18 00:05 Right upper quadrant ultrasound and labs unremarkable. Patient does continue to have some right upper quadrant abdominal pain with associated nausea. I discussed this case with the surgeon health information specialist Dr. Ocampo and have requested him to consult on the patient given her abnormal HIDA scan and persistent right upper quadrant abdominal pain and inability to tolerate oral intake. 05/03/18 00:31 has accepted the patient for admission. - Vital Signs Vital signs: Temp Pulse Resp BP Pulse Ox 98.0 F 76 18 102/49 L 94 05/03/18 02:16 05/03/18 02:16 05/03/18 02:16 05/03/18 02:16 05/03/18 02:16 - Laboratory Result Diagrams: 05/02/18 22:50 05/02/18 22:50 Laboratory results interpreted by me: 05/02/18 22:50 Creatinine 0.51 L Lipase 20.3 L - Diagnostic Test Radiology reviewed: Reports reviewed Discharge - Discharge Clinical Impression: Right upper quadrant abdominal pain, Biliary colic Condition: Fair Disposition: ADMITTED OBSERVATION Admitting Provider: Surgicalist Unit Admitted: Surgical Floor
[2018-05-02] MEDS: MORPHINE SULFATE 10 MG/ML INJ IV PRN (22:52)
[2018-05-02 23:03] LABS: ABSOLUTE BASOPHILS # (AUTO) 0.1 10^3/uL (0.0-0.2); ABSOLUTE EOSINOPHILS # (AUTO) 0.2 10^3/uL (0.0-0.6); ABSOLUTE LYMPHOCYTES (AUTO) 3.4 10^3/uL (0.5-4.7); ABSOLUTE NEUT (AUTO) 4.9 10^3/uL (1.7-8.2); BASOPHILS % (AUTO) 0.6 % (0-2); EOSINOPHILS % (AUTO) 1.7 % (0-6); HEMATOCRIT 41.2 % (36.0-47.0); HEMOGLOBIN 14.4 g/dL (12.0-15.5); LYMPHOCYTES % (AUTO) 35.9 % (13-45); MEAN CORPUSCULAR HEMOGLOBIN 31.7 pg (27.0-33.4); MEAN CORPUSCULAR HGB CONC 34.9 g/dL (32.0-36.0); MEAN CORPUSCULAR VOLUME 91 fl (80-97); MONOCYTES % (AUTO) 10.6 % (3-13); PLATELET COUNT 359 10^3/uL (150-450); RED BLOOD COUNT 4.53 10^6/uL (3.72-5.28); RED CELL DISTRIBUTION WIDTH 12.5 % (11.5-14.0); SEGMENTED NEUTROPHILS % (AUTO) 51.2 % (42-78); TOTAL CELLS COUNTED % (AUTO) 100 %; WHITE BLOOD COUNT 9.6 10^3/uL (4.0-10.5)
[2018-05-02 23:14] LABS: ALANINE AMINOTRANSFERASE 23 U/L (9-52); ALKALINE PHOSPHATASE 108 U/L (38-126); ANION GAP 10 (5-19); ASPARTATE AMINO TRANSFERASE 15 U/L (14-36); BILIRUBIN,DIRECT 0.2 mg/dL (0.0-0.4); BILIRUBIN,TOTAL 0.3 mg/dL (0.2-1.3); BLOOD UREA NITROGEN 9 mg/dL (7-20); CALCIUM 9.2 mg/dL (8.4-10.2); CARBON DIOXIDE 24 mmol/L (22-30); CHLORIDE 107 mmol/L (98-107); GLUCOSE 96 mg/dL (75-110); LIPASE 20.3 U/L (23-300); POTASSIUM 4.3 mmol/L (3.6-5.0); SODIUM 141.3 mmol/L (137-145); TOTAL PROTEIN 6.5 g/dL (6.3-8.2)
--- NOTE | 2018-05-02 23:43 | RADIOLOGY REPORT (SQ) ---
EXAM DESCRIPTION: US ABDOMEN LIMITED COMPLETED DATE/TME: 05/02/2018 22:20 CLINICAL HISTORY: 57 years Female, ruq ab pain Comparison: 02/13/2018 LIMITATIONS: None. FINDINGS: Gallbladder, negative sonographic Dial's test, liver, a 0.6-cm diameter common bile duct, no intrahepatic ductal dilation, 10-cm right kidney, pancreas, visualized vasculature/abdominal aorta, and no significant ascites appear otherwise unremarkable. IMPRESSION: Normal RUQ-Abdominal Sonogram.
[2018-05-03] MEDS: MORPHINE SULFATE 10 MG/ML INJ IV PRN (02:41)
[2018-05-03] MEDS ORDERED: DEXTROSE 50%-WATER 25 GM/50 ML DISP.SYRIN IV PRN ×2 (03:09)
[2018-05-03] MEDS ORDERED: GLUCAGON,HUMAN RECOMB 1 MG INJ SUBCUT PRN (03:09)
[2018-05-03] MEDS ORDERED: DEXTROSE 40% GEL 15 GM TUBE PO PRN ×2 (03:09)
[2018-05-03] MEDS ORDERED: NORMAL SALINE 1000 ML 1,000 ML IV PRN (03:10)
[2018-05-03] MEDS ORDERED: HYDROMORPHONE HCL INJ/PF 2 MG/ML AMPULE IV PRN (03:10)
[2018-05-03] MEDS ORDERED: ONDANSETRON HCL INJ/PF 4 MG/2 ML SDV IV PRN (03:11)
[2018-05-03 03:34] LABS: APPEARANCE,URINE CLEAR; BILIRUBIN,URINE NEGATIVE (NEGATIVE); COLOR,URINE YELLOW; GLUCOSE, URINE NEGATIVE (NEGATIVE); KETONES,URINE NEGATIVE (NEGATIVE); LEUKOCYTE ESTERASE,URINE SMALL (NEGATIVE); NITRITE,URINE NEGATIVE (NEGATIVE); PROTEIN,URINE NEGATIVE (NEGATIVE); URINE SPECIFIC GRAVITY 1.017
--- NOTE | 2018-05-03 08:31 | HISTORY AND PHYSICAL E ---
History and Physical NAME: LOREE JAQUEZ : 1960 AGE: 58Y ADMITTED: 05/03/2018 ROOM: 533 CHIEF COMPLAINT: Abdominal pains. HISTORY OF PRESENT ILLNESS: This is a 58-year-old female complaining of abdominal pains around the epigastric and right upper quadrant radiating to the back off and on for the past 2 months. She claims after eating fried or greasy food she would have pains for about 4 hours that would subside. However, since 4:30 this morning, the patient has been complaining of severe pains without any let up. She went to ED today and had an ultrasound of the gallbladder, which showed no stones. However, she had a HIDA scan on 04/25/2018, which showed ejection fraction of the gallbladder at 24% with same symptoms of injecting CCK. Because of the persistent pains and patient unable to eat, she will be admitted for hydration, possible laparoscopic cholecystectomy tomorrow. History of hypothyroidism on levothyroxine, takes Abilify and Dexilant for antacid. PAST MEDICAL HISTORY: CARDIAC: Denies atrial fibrillation or congestive heart failure. PULMONARY: Reports history of asthma?. History of bronchitis and pneumonia. NEUROLOGIC: Reports a history of migraine. ENDOCRINE: Reports hypothyroidism. Had thyroidectomy. RENAL/GENITOURINARY: History of ovarian cyst in the left side, malignancy. Reports breast cancer and a history of cervical cancer. GASTROINTESTINAL: Reports GERD, hiatal hernia, history of ulcer. MUSCULOSKELETAL: History of arthritis. PSYCHIATRIC: Reports history of bipolar and depression. PAST SURGICAL HISTORY: Reports of history of breast surgery, hysterectomy, mastectomy bilateral, orthopedic surgery, arthroscopic left knee surgery. IMMUNIZATIONS: Up to date. DPT yes 2011. Recent pneumococcal vaccine 06/17/2017. PHYSICAL EXAMINATION: GENERAL: Well-developed, fairly nourished 58-year-old female alert and oriented, complaining of abdominal pains. HEENT: Head atraumatic, neck supple, no thyromegaly Lungs: clear to auscultation Heart: RSR Abd : soft, Mild tenderness RUQ Ext: No edema Integumentary: No rash VITAL SIGNS: Temperature 98 degrees Fahrenheit, pulse 108 per minute, respirations 18 per minute, blood pressure 124/47 and pulse of 97. LABORATORY: Her white count is 9.6 with a hemoglobin of 14.4. Platelet is 369. Chemistry: Electrolytes are normal as well as BUN and creatinine. Total, direct LFTs are all within normal limits. Lipase is 20.3. IMPRESSION: 1. Biliary dyskinesia. 2. Hypothyroidism. 3. History of depression. PLAN: 1. Start IV fluids. 2. Keep n.p.o. 3. Possible laparoscopic cholecystectomy if symptoms do not improve. DICTATING PHYSICIAN: MERT DALTON M.D. [id number] PHY#: [id number] ID: [id number] JOB#: [id number] ACCT: [id number] cc: > MTDD
[2018-05-03] MEDS ORDERED: NEOSTIGMINE METHYLSULFATE 10 MG/10 ML VIAL ONE (09:47)
[2018-05-03] MEDS ORDERED: SUCCINYLCHOLINE CHLORIDE INJ 200 MG/10 ML VIAL ONE (09:47)
[2018-05-03] MEDS ORDERED: VECURONIUM BROMIDE INJ 10 MG VIAL IV ONE (09:47)
[2018-05-03] MEDS ORDERED: GLYCOPYRROLATE 1 MG/5 ML SYRINGE ONE (09:47)
[2018-05-03] MEDS ORDERED: EPHEDRINE SULFATE INJ 50 MG/1 ML AMPULE ONE (11:06)
[2018-05-03] MEDS ORDERED: ONDANSETRON HCL INJ/PF 4 MG/2 ML SDV ONE (11:06)
[2018-05-03] MEDS ORDERED: MIDAZOLAM 2 MG/2 ML INJ ONE (11:06)
[2018-05-03] MEDS ORDERED: FENTANYL CITRATE INJ/PF 100 MCG/2 ML AMPUL ONE (11:06)
[2018-05-03] MEDS ORDERED: DEXAMETHASONE SOD PHOSPHATE INJ 4 MG/1 ML VIAL ONE (11:06)
[2018-05-03] MEDS ORDERED: PROPOFOL INJ 200 MG/20 ML VIAL IV ONE (11:06)
[2018-05-03] MEDS ORDERED: ACETAMINOPHEN 1,000 MG/100 ML RTUPB IV ONE (11:07)
[2018-05-03] MEDS ORDERED: BUPIVACAINE HCL 0.25% /EPINEPHRINE INJ/PF 30 ML SDV ONE (11:12)
[2018-05-03] MEDS ORDERED: CEFAZOLIN INJ 1 GM VIAL ONE (11:16)
[2018-05-03] MEDS ORDERED: FENTANYL CITRATE INJ/PF 100 MCG/2 ML AMPUL IV PRN ×3 (12:22)
[2018-05-03] MEDS ORDERED: PROMETHAZINE HCL INJ 25 MG/1 ML VIAL IV PRN (12:22)
--- NOTE | 2018-05-03 12:30 | EKG REPORT ---
SEVERITY:- OTHERWISE NORMAL ECG - SINUS RHYTHM LOW VOLTAGE IN FRONTAL LEADS : Confirmed by: Darnell Torrez MD 03-May-2018 12:30:20
[2018-05-03] MEDS ORDERED: KETOROLAC TROMETHAMINE INJ/PF 30 MG/1 ML SDV ONE (13:19)
[2018-05-03] MEDS ORDERED: OXYCODONE-ACETAMINOPHEN 5-325 MG TABLET PO PRN (13:26)
[2018-05-03] MEDS ORDERED: MORPHINE SULFATE 10 MG/ML INJ IV PRN (13:30)
--- NOTE | 2018-05-03 13:56 | OPERATIVE REPORT E ---
Operative Report NAME: LROEE JAQUEZ : 1960 AGE: 58Y DATE OF SURGERY: 05/03/2018 ROOM: 533 PREOPERATIVE DIAGNOSIS: Biliary dyskinesia. POSTOPERATIVE DIAGNOSIS: Biliary dyskinesia. PROCEDURE: Laparoscopic cholecystectomy. SURGEON: MERT DALTON M.D. ANESTHESIA: General. INDICATION: This is a 57-year-old female who has been complaining of off and on right upper quadrant pains for the past 2 months. Pains usually would last about 4 hours and then would subside. However, the pain started on the morning of 05/02 and persisted until being seen in the emergency department last night. She had a HIDA scan ordered by her clinic physician director last week, which showed ejection fraction of 24% and pains came back with injection of cholecystokinin indicating biliary dyskinesia. DESCRIPTION OF PROCEDURE: After adequate general anesthesia, the patient was placed in supine position and the abdomen prepped and draped in the usual sterile fashion. Appropriate timeout was called. Next, an intra-abdominal incision was made, the fascia identified and opened, and the Herlinda trocar inserted through the fascia into the abdominal cavity. CO2 insufflated to a pressure of 15 mmHg through the trocars. Three other trocars were placed 12 mm in the subxiphoid and two 5 mm right upper quadrant under direct camera vision. Next, the gallbladder was then identified and noted to be just slightly thickened wall without any adhesions. It was then lifted up from the tip over the liver and the infundibulum grasped. The cystic duct was then dissected and clipped with Hemoclips after identification of the cystic artery showing critical view of safety. Cystic duct was then divided after placement of both clips. A clip placed on the cystic artery and divided with the use of Harmonic tomas. The gallbladder was then taken off the liver bed with the use of Harmonic tomas. The gallbladder was then taken completely off the liver bed and placed in an Endobag and pulled out through the umbilical port. Palpation of the gallbladder did not show any stones. Next, the trocars were put back and re-examination of the liver bed was done and this showed no evidence of any bleeding. Following this, all the trocars were removed and CO2 *------* the trocar sites. A [id number] suture was placed at the infraumbilical fascial defect and all the skin incisions closed with running subcuticular 4-0 Vicryl undyed. Steri-Strips were placed over the operative sites. Needle, instrument, and sponge count were all correct and estimated blood loss was less than 5 mL. The patient then brought to the recovery room in satisfactory condition. DICTATING PHYSICIAN: MERT DALTON M.D. [id number] PHY#: [id number] ID: [id number] JOB#: [id number] ACCT: [id number] cc:MERT DALTON M.D. >
[2018-05-03] MEDS ORDERED: CEFAZOLIN 1 GM/D5W RTU 1 GM/50 ML RTUPB IV SCH (18:00)
[2018-05-03 20:24] VITALS: BP 99/47
--- NOTE | 2018-05-04 13:46 | DISCHARGE SUMMARY E ---
Discharge Summary NAME: LOREE JAQUEZ : 1960 AGE: 58Y ADMITTED: 05/03/2018 DISCHARGED: 05/03/2018 FINAL DIAGNOSIS: Biliary dyskinesia. PROCEDURE DONE: Laparoscopic cholecystectomy 05/03/2018, surgeon Dr. Ocampo. HOSPITAL COURSE: This is a 58-year-old female complaining of off and on pains along the right upper quadrant area for the past 1-2 months. The pains got worse in the past 24 hours and no let up. She did have biliary scan on 04/25/18, as ordered by her primary physician, which showed gallbladder ejection fraction decreased to 24% and with the pain worsened with CCK. A laparoscopic cholecystectomy was then done today by Dr. Ocampo. Postoperatively the patient did very well and tolerating regular diet for dinner tonight. She feels that the pains from before is gone, just some mild pains from the incision sites. She was then discharged improved to be followed up in the surgical clinic in 2 weeks. DISCHARGE INSTRUCTIONS: The patient advised not to do any lifting more than 10-15 pounds for the next 1-2 weeks. DICTATING PHYSICIAN: MERT OCAMPO M.D. [id number] PHY#: [id number] ID: [id number] JOB#: [id number] ACCT: [id number] cc:MERT OCAMPO M.D. >
== END 2018-05-03 21:00 | disposition home or self-care (01) ==
LOC: ER 21:08 → INTOOBSV 05-03 00:41 → OBSVTOIN 05-03 00:41 → EH 05-03 00:41 → 5 05-03 02:52
PROVIDERS: ATTEND Surgery
PROC: 0FT44ZZ Resection of Gallbladder, Percutaneous Endoscopic Approach (ICD-10-PCS; principal; 2018-05-03 13:00)
DX: K81.1 Chronic cholecystitis (principal); K82.8 Other specified diseases of gallbladder; G89.18 Other acute postprocedural pain; E03.9 Hypothyroidism, unspecified; K21.9 Gastro-esophageal reflux disease without esophagitis; F31.9 Bipolar disorder, unspecified; M19.90 Unspecified osteoarthritis, unspecified site; Z79.899 Other long term (current) drug therapy; Z85.3 Personal history of malignant neoplasm of breast; Z85.41 Personal history of malignant neoplasm of cervix uteri; Z90.13 Acquired absence of bilateral breasts and nipples; Z87.11 Personal history of peptic ulcer disease; Z87.19 Personal history of other diseases of the digestive system; Z90.710 Acquired absence of both cervix and uterus; Z98.890 Other specified postprocedural states; Z87.42 Personal history of other diseases of the female genital tract
CPT/HCPCS: 99285; 96374; 96375; 36415; 83690; 85025; 80053; 81001; 84484; 88304 ×2; 76705; 93005; 93010; 47562; J2250; J3490 ×3; J0690 ×2; J1100; J3010; J1885 ×2; J2270 ×2; A9270; J1170; J0330; J2405 ×2; J7030; J2704; J0131; 790

== ENCOUNTER → 2018-07-03 | Outpatient (CLI) | payer MEDICARE, MEDICAID ==
--- NOTE | 2018-07-03 17:30 | RADIOLOGY REPORT (SQ) ---
EXAM DESCRIPTION: PELVIS AP COMPLETED DATE/TIME: 07/03/2018 4:52 pm REASON FOR STUDY: INJURY OF COCCYX; LEFT ISCHIAL PAIN S39.92XA UNSPECIFIED INJURY OF LOWER BACK, IN ITIAL ENCOUNTER M25.552 PAIN IN LEFT HIP COMPARISON: None. NUMBER OF VIEWS: One view TECHNIQUE: AP Pelvis LIMITATIONS: None. FINDINGS: MINERALIZATION: Normal. HIPS: No acute fracture or dislocation. No worrisome bone lesions. PELVIS AND SACRUM: No acute fracture or dislocation. No worrisome bone lesions. PUBIS AND ISCHIUM: No acute fracture. LOWER LUMBAR SPINE: There are postsurgical changes in the lower lumbar spine. SOFT TISSUES: No findings. OTHER: No other significant finding. IMPRESSION: No acute findings. TECHNICAL DOCUMENTATION: JOB ID: [id number] [employer]- All Rights Reserved Reading location - IP/workstation name: [email or web address]
--- NOTE | 2018-07-03 17:31 | RADIOLOGY REPORT (SQ) ---
EXAM DESCRIPTION: SACRUM AND COCCYX COMPLETED DATE/TIME: 07/03/2018 4:52 pm REASON FOR STUDY: INJURY OF COCCYX; LEFT ISCHIAL PAIN S39.92XA UNSPECIFIED INJURY OF LOWER BACK, IN ITIAL ENCOUNTER M25.552 PAIN IN LEFT HIP COMPARISON: None. NUMBER OF VIEWS: Three views. TECHNIQUE: AP, lateral, and tilt views of the sacrum and coccyx. LIMITATIONS: None. FINDINGS: MINERALIZATION: Normal. BONES: No acute fracture or dislocation. No worrisome bone lesions. SOFT TISSUES: No soft tissue swelling. No foreign body. OTHER: No other significant finding. IMPRESSION: NEGATIVE STUDY OF THE SACRUM AND COCCYX. TECHNICAL DOCUMENTATION: JOB ID: [id number] [employer]- All Rights Reserved Reading location - IP/workstation name: [email or web address]
== END ==
LOC: OD 16:28
PROVIDERS: ATTEND Family Medicine
DX: S39.92XA Unspecified injury of lower back, initial encounter (principal); M25.552 Pain in left hip; W19.XXXA Unspecified fall, initial encounter; Y93.9 Activity, unspecified
CPT/HCPCS: 72170; 72220

== ENCOUNTER → 2020-02-24 | Outpatient (CLI) | payer MEDICARE, MEDICAID ==
[2020-02-24 08:46] LABS: ABSOLUTE BASOPHILS # (AUTO) 0.1 10^3/uL (0.0-0.2); ABSOLUTE EOSINOPHILS # (AUTO) 0.2 10^3/uL (0.0-0.6); ABSOLUTE LYMPHOCYTES (AUTO) 3.7 10^3/uL (0.5-4.7); ABSOLUTE MONOCYTES (AUTO) 0.6 10^3/uL (0.1-1.4); ABSOLUTE NEUT (AUTO) 6.4 10^3/uL (1.7-8.2); EOSINOPHILS % (AUTO) 2.2 % (0-6); HEMATOCRIT 43.7 % (36.0-47.0); HEMOGLOBIN 15.5 g/dL (12.0-15.5); LYMPHOCYTES % (AUTO) 33.5 % (13-45); MEAN CORPUSCULAR HEMOGLOBIN 32.9 pg (27.0-33.4); MEAN CORPUSCULAR HGB CONC 35.5 g/dL (32.0-36.0); MEAN CORPUSCULAR VOLUME 93 fl (80-97); MONOCYTES % (AUTO) 5.4 % (3-13); PLATELET COUNT 372 10^3/uL (150-450); RED BLOOD COUNT 4.71 10^6/uL (3.72-5.28); RED CELL DISTRIBUTION WIDTH 12.6 % (11.5-14.0); SEGMENTED NEUTROPHILS % (AUTO) 57.9 % (42-78); TOTAL CELLS COUNTED % (AUTO) 100 %
--- NOTE | 2020-02-24 09:33 | EKG REPORT ---
SEVERITY:- NORMAL ECG - SINUS RHYTHM : Confirmed by: Malorie Castillo MD 24-Feb-2020 09:32:26
[2020-02-24 10:37] LABS: ALBUMIN 4.8 g/dL (3.5-5.0); ALKALINE PHOSPHATASE 99 U/L (38-126); ANION GAP 9 (5-19); ASPARTATE AMINO TRANSFERASE 25 U/L (14-36); BILIRUBIN,TOTAL 0.3 mg/dL (0.2-1.3); BLOOD UREA NITROGEN 16 mg/dL (7-20); CARBON DIOXIDE 28 mmol/L (22-30); CHLORIDE 100 mmol/L (98-107); GLUCOSE 82 mg/dL (75-110); TOTAL PROTEIN 7.6 g/dL (6.3-8.2)
[2020-02-24 10:38] LABS: LITHIUM < 0.2 mEq/L (0.6-1.2)
== END ==
LOC: OD 07:35
PROVIDERS: ATTEND Nurse Practitioner Psychiatric/Mental Health
DX: F31.32 Bipolar disorder, current episode depressed, moderate (principal); Z79.899 Other long term (current) drug therapy
CPT/HCPCS: 36415; 80053; 80178; 84443; 85025; 93005; 93010

== ENCOUNTER → 2020-08-17 | Outpatient (CLI) | payer MEDICARE, MEDICAID ==
--- NOTE | 2020-08-17 12:28 | RADIOLOGY REPORT (SQ) ---
EXAM DESCRIPTION: CHEST 2 VIEWS IMAGES COMPLETED DATE/TIME: 08/17/2020 10:08 am REASON FOR STUDY: DIFFICULTY BREATHING COMPARISON: 2016 EXAM PARAMETERS: NUMBER OF VIEWS: two views TECHNIQUE: Digital Frontal and Lateral radiographic views of the chest acquired. RADIATION DOSE: NA LIMITATIONS: none FINDINGS: LUNGS AND PLEURA: No opacities, masses or pneumothorax. No pleural effusion. MEDIASTINUM AND HILAR STRUCTURES: No masses or contour abnormalities. HEART AND VASCULAR STRUCTURES: Heart normal size. No evidence for failure. BONES: No acute findings. HARDWARE: None in the chest. OTHER: No other significant finding. IMPRESSION: NO ACUTE RADIOGRAPHIC FINDING IN THE CHEST. TECHNICAL DOCUMENTATION: JOB ID: [id number] [employer]- All Rights Reserved Reading location - IP/workstation name: [email or web address]
== END ==
LOC: RAD 09:37
PROVIDERS: ATTEND Nurse Practitioner Family
DX: R06.89 Other abnormalities of breathing (principal)
CPT/HCPCS: 71046